=== PATIENT | female | born 1995 | race Two or more races ===

== ENCOUNTER 2024-05-22 16:39 | Emergency (ER) | payer MEDICAID, SELFPAY ==
[2024-05-22 17:47] VITALS: BP 115/68; PULSE 70; RESP 16; TEMP 36.9; O2SAT 99; BMI 26.1
--- NOTE | 2024-05-22 18:08 | PD.EDRME ---
Rapid Medical Screening Exam RME Arrival date/time: 05/22/24 16:39 This is a 28-year-old female with complaints of vaginal pain, lower pelvic pain positive . I have greeted and performed a focused initial assessment of this patient. Initial appropriate labs ordered at this time. A comprehensive ED assessment and evaluation of the patient and analysis of all test and completion of medical decision making process will be conducted by additional ED provider. Chief Complaint: Vaginal Bleeding Time Seen by Provider: 05/22/24 17:40 Vital signs: Vital Signs Temperature 98.4 F 05/22/24 17:47 Pulse Rate 70 05/22/24 17:47 Respiratory Rate 16 05/22/24 17:47 Blood Pressure 115/68 05/22/24 17:47 Pulse Oximetry (%) 99 05/22/24 17:47 Oxygen Delivery Method Room Air 05/22/24 17:47
[2024-05-22 18:28] LABS: Collection Type, Urine Clean Catch
[2024-05-22 18:32] LABS: Basophils % (Auto) 0 % (0-2.5); Eosinophils # (Auto) 0.1 Thou/mm3 (0.0-0.5); Eosinophils % (Auto) 1 % (0-10); Hemoglobin 10.6 g/dL (12.0-16.0); Immature Granulocytes % (Auto) 0 % (0-0); Immature Granulocytes Auto 0.02 Thou/mm3 (0.00-0.00); Lymphocytes # (Auto) 2.5 Thou/mm3 (1.0-4.8); Lymphocytes % (Auto) 27 % (10-50); Mean Corpuscular HGB Conc 35.3 g/dl (31.0-37.0); Mean Corpuscular Hemoglobin 30.4 pg (25.0-35.0); Mean Corpuscular Volume 86 fL (80-100); Monocytes # (Auto) 0.9 Thou/mm3 (0.0-0.8); Monocytes % (Auto) 9 % (0-12); Neutrophils # (Auto) 5.7 Thou/mm3 (1.8-7.7); Neutrophils % (Auto) 62 % (37-80); Nucleated Red Blood Cell % 0 /100 WBC (0); Platelet Count 193 Thou/mm3 (140-440); RDW Standard Deviation 38.8 fL (36.4-46.3); Red Blood Count 3.49 Miln/mm3 (4.00-5.20); White Blood Count 9.1 Thou/mm3 (3.6-11.0)
[2024-05-22 18:43] LABS: Bacteria,Urine 1+; Bilirubin,Urine Negative (Negative); Blood,Urine Negative (Negative); Clarity,Urine Turbid (Clear/Hazy); Color,Urine Yellow (Lt Yel-Yel); Glucose, Urine Negative (Negative); Ketones,Urine Negative (Negative); Leukocyte Esterase,Urine Negative (Negative); Nitrite,Urine Negative (Negative); PH,Urine 6.5 (5.0-7.0); Protein,Urine 1+ (Neg - Trace); RBC,Urine 4 /hpf (0-3); Specific Gravity,Urine 1.035 (1.001-1.035); Squamous Epithelial Cell,Urine 5 /hpf (0-5); WBC,Urine 2 /hpf (0-5)
[2024-05-22 19:06] LABS: Alanine Aminotransferase 18 U/L (10-49); Albumin, Serum 4.4 gm/dL (3.5-5.0); Albumin/Globulin Ratio 1.5 (1.2-2.2); Alkaline Phosphatase 60 U/L (46-116); Anion Gap 7 (7-16); Aspartate Amino Transferase 11 U/L (0-34); BUN/Creatinine Ratio 10 Ratio (12-20); Bilirubin,Total 0.4 mg/dL (0.3-1.2); Blood Urea Nitrogen 6 mg/dL (9-23); Calcium 9.1 mg/dL (8.3-10.6); Calcium (Corrected) 9.1 mg/dL (8.5-10.1); Chloride 105 mMol/L (98-107); Creatinine (Component) 0.6 mg/dL (0.6-1.3); Estimated Creatinine Clearance 103.1 mL/min (>60); Globulin 2.9 gm/dL (2.3-3.5); Glucose 81 mg/dL (74-106); Osmolality,Calculated 270 (275-295); Potassium 3.6 mMol/L (3.4-5.1); Sodium 137 mMol/L (136-145); Total Protein 7.3 gm/dL (5.7-8.2); eGFR > 60 See Note
[2024-05-22 19:29] LABS: Beta HCG,Quantitative 124709 mIU/mL (<5.0)
--- NOTE | 2024-05-22 19:36 | XR_ITS ---
Examination: Complete OB ultrasound, less than 14 weeks, transabdominal Date and time of exam: May hrs. Indications: Pelvic cramping and vaginal bleeding today Technique: Obstetrical ultrasound images less than 14 weeks performed via transabdominal imaging Findings: A normal shaped single intrauterine gestation is present in the uterus. CRL 1.5 cm corresponds to 7 week 6 day gestational age Cardiac motion 166 BPM Ultrasonographic survey of visible and placental structures unremarkable. Amniotic fluid volume appears appropriate for this estimated gestational age. Right ovary 5.1 cm arterial flow 3.1 x 3.1 cm cyst Left ovary 2.7 cm arterial flow. Impression: Viable intrauterine gestation 7 weeks 6 days
--- NOTE | 2024-05-22 20:37 | EDNOTE_ITS ---
ED OB Contraction Preg RMI/HPI General Chief complaint: Vaginal Bleeding Stated complaint: VAG BLEEDING, LOWER ABD PAIN Time Seen by Provider: 05/22/24 17:40 Arrival date/time: 05/22/24 16:39 RME / HPI RME / HPI Narrative: 05/22/24 16:39 This is a 28-year-old female with complaints of lower pelvic pain positive . I have greeted and performed a focused initial assessment of this patient. Initial appropriate labs ordered at this time. A comprehensive ED assessment and evaluation of the patient and analysis of all test and completion of medical decision making process will be conducted by additional ED provider. This section includes all my notes and documentations, including HPI, PE, and ED course. Ramiro Lin MD HPI: 28-year-old female here with vaginal spotting and pelvic pain since yesterday. Positive home . No other complaints. ROS: All negative except as documented in HPI. Physical Exam: General: Alert and oriented. No acute distress when remaining still. Eyes: Conjunctivae and lids clear. ENT: No nasal congestion. Neck: Supple. Heart: RRR. Lungs: No respiratory distress. Good air movement. No rhonchi, wheezing, rales. Abdomen: Soft and nontender. Normal bowel sounds. No distension. No rebound or guarding. Back: No CVA tenderness. Skin: Warm and dry. Neuro: Alert and oriented X 3. I reviewed all diagnostic test results. My review of the OB ultrasound report is GA 7 6/7-week IUP. Blood tests and urine tests unremarkable except elevated beta-hCG. At this point, diagnoses include threatened . Recommended expectant management. Based on my best medical judgment, made decision no further evaluation or treatment indicated at this time. Patient understands and agrees to the discharge instructions customized and printed, see below. Discharge Instructions from Dr. Lin: 1.? ? ? After evaluation, your baby is alive and doing well. 2.? ? ? Today, your GA is 7 6/7 weeks.? 3.? ? ? Only time will determine whether you will have a successful or you will have a miscarriage.? If your symptoms stop, you can have a successful .? If your symptoms worsen, you may have a miscarriage.? If you have a miscarriage, unfortunately we won?t be able to save the baby because it?s too early.? Under 20 weeks, unfortunately we can?t help.?? 4.? ? ? See a private doctor on 05/23/2024 to start your care.? No sexual activity until cleared by a doctor taking care of you.?? 5.? ? ? Seek immediate medical care for severe bleeding (soaking more than 3 pads per hour), intolerable pain, or with any concerns.? Instrucciones de syed de jag Lin: 1. Despu?s de la evaluaci?n, ambrocio beb? est? vivo y se encuentra taylor. 2. Hoy, ambrocio edad gestacional (EG) es de 7 6/7 semanas. 3. Solo el tiempo determinar? si tendr? un embarazo exitoso o sufrir? un aborto espont?mendy. Si nathalie s?ntomas desaparecen, puede tener un embarazo exitoso. Si nathalie s?ntomas empeoran, podr?a sufrir un aborto espont?mendy. Si sufre un aborto espont?mendy, lamentablemente no podremos salvar al beb? porque es demasiado pronto. Si tiene menos de 20 semanas, lamentablemente no podemos ayudarla. 4. Consulte con un m?dico privado el 23/05/2024 para comenzar ambrocio atenci?n . No tenga relaciones sexuales hasta que el m?dico que la atienda lo autorice. 5. Busque atenci?n m?dica inmediata en jeannie de sangrado intenso (que empape m?s de 3 toallas sanitarias por hora), dolor intolerable o cualquier inquietud. Ramiro Lin MD Related Data Allergies Allergy/AdvReac Type Severity Reaction Status Date / Time No Known Allergies Allergy Verified 05/22/24 16:42 Course Quality Measures none Orders Category Date Time Status US OB <= 14 weeks fetus Stat Exams 05/22/24 19:36 Completed ABO/RH Type Stat Lab 05/22/24 18:17 Completed Beta HCG,Quantitative Stat Lab 05/22/24 18:17 Completed CBC Stat Lab 05/22/24 18:17 Completed Comprehensive Metabolic Panel Stat Lab 05/22/24 18:17 Completed Urinalysis Stat Lab 05/22/24 18:20 Completed Urine Culture Stat Lab 05/22/24 18:20 Received Vital Signs Vital signs: Vital Signs Temperature 98.4 F 05/22/24 17:47 Pulse Rate 70 05/22/24 17:47 Respiratory Rate 16 05/22/24 17:47 Blood Pressure 115/68 05/22/24 17:47 Pulse Oximetry (%) 99 05/22/24 17:47 Oxygen Delivery Method Room Air 05/22/24 17:47 Vaginal Bleeding Patient data External records reviewed:: [facility] previous records Clinical information provided by:: patient Social determinants that could affect healthcare access:: none Patient has the following chronic illnesses:: None How is presenting disease/condition affected by chronic disease/condition?: no chronic disease Evaluation data The following diagnostics were reviewed and interpreted by me:: lab results and radiology exam(s) Lab and/or radiology exams considered but not ordered:: None Interpretation Summary: Threatened Medications / Prescriptions Medications or Prescriptions considered but not ordered:: None Medication administrations:: None Consultations Consultation(s) initiated? (list below): No Diagnosis Vaginal Bleeding Differential Diagnosis: missed , threatened , dysfunctional uterine bleeding, menometrorrhagia, incomplete , ectopic without intrauterine and vaginal bleeding Most likely diagnosis given after review of the tests above:: Threatened Admission Indicated Admission indicated?: not indicated Explain why admission is indicated or not indicated:: There is no indication for admission. Admission Request Was there a request for admission?: No Disposition Plan Disposition Plan: Discharge Discharge Attestation Discharge Attestation: The patient and all family members were given an opportunity to ask questions and understood the discharge instructions. Discharge instructions specifically effects, indications for sooner follow up or return to the emergency department, and the expected course of current diagnosis. Patient condition: Stable Discharge Plan Plan Patient Disposition: HOME (Self Care) Prescriptions/Referrals Referrals: No Primary/Family,Physician [Primary Care Provider] - In 1 week Problem List Clinical Impression: Threatened Patient/Caregiver Discharge Instructions Discharge Activity: activity as tolerated Education Materials: ED Possible Miscarriage ... Additional Instructions: Discharge Instructions from Dr. Lin: 1.? ? ? After evaluation, your baby is alive and doing well. 2.? ? ? Today, your GA is 7 6/7 weeks.? 3.? ? ? Only time will determine whether you will have a successful or you will have a miscarriage.? If your symptoms stop, you can have a successful .? If your symptoms worsen, you may have a miscarriage.? If you have a miscarriage, unfortunately we won?t be able to save the baby because it?s too early.? Under 20 weeks, unfortunately we can?t help.?? 4.? ? ? See a private doctor on 05/23/2024 to start your care.? No sexual activity until cleared by a doctor taking care of you.?? 5.? ? ? Seek immediate medical care for severe bleeding (soaking more than 3 pads per hour), intolerable pain, or with any concerns.? Instrucciones de syed de jag Lin: 1. Despu?s de la evaluaci?n, ambrocio beb? est? vivo y se encuentra taylor. 2. Hoy, ambrocio edad gestacional (EG) es de 7 6/7 semanas. 3. Solo el tiempo determinar? si tendr? un embarazo exitoso o sufrir? un aborto espont?mendy. Si nathalie s?ntomas desaparecen, puede tener un embarazo exitoso. Si nathalie s?ntomas empeoran, podr?a sufrir un aborto espont?mendy. Si sufre un aborto espont?mendy, lamentablemente no podremos salvar al beb? porque es demasiado pronto. Si tiene menos de 20 semanas, lamentablemente no podemos ayudarla. 4. Consulte con un m?dico privado el 23/05/2024 para comenzar ambrocio atenci?n . No tenga relaciones sexuales hasta que el m?dico que la atienda lo autorice. 5. Busque atenci?n m?dica inmediata en jeannie de sangrado intenso (que empape m?s de 3 toallas sanitarias por hora), dolor intolerable o cualquier inquietud. Print Language: Slovenian Stand Alone Forms: [employer] Award Info., Patient Portal Info Letter
== END 2024-05-22 20:47 | disposition home or self-care (01) ==
PROVIDERS: Nurse Practitioner Primary Care; Emergency Provider Emergency Medicine
DX: O20.0 Threatened abortion (principal); Z3A.01 Less than 8 weeks gestation of pregnancy
CPT/HCPCS: 36415; 76801; 80053; 81001; 84702; 85025; 86900; 86901; 87086; 99284

== ENCOUNTER 2024-12-19 13:08 | Outpatient (AMB) | payer MEDICAID, SELFPAY ==
[2024-12-19 13:15] VITALS: BP 115/73; PULSE 77; RESP 18; TEMP 36.6; O2SAT 97; BMI 32.5
--- NOTE | 2024-12-19 13:15 | OBCLNT_ITS ---
Vital Signs 12/19/24 13:15 Height 1.47 m Height Method Stated Weight 70.42 kg Weight Measurement Method Standing Scale BMI 32.5 BP 115/73 Blood Pressure Source Automatic Cuff Blood Pressure Location Right Upper Arm Position Sitting Respiration 18 Pulse 77 Pulse Source Monitor Temp 97.8 F Temp Source Temporal Artery Scan Pulse Oximetry (%) 97 Oxygen Delivery Method Room Air Allergies/Home Meds Allergies & Medications Allergies No Known Allergies Allergy (Verified 12/19/24 13:16) Medication Reconciliation No Known Home Medications 12/11/24 [History Confirmed 12/19/24] Intake Visit Data Collection New Patient or Established: Established Patient (seen at [facility] within 3 years) Reason for Visit:: OBC Seen by Clinical Staff ONLY (RN/MA): No Shift Nurse Manager Required: No Do You Feel Safe at Home: Yes Authorities Contacted: N/A PCP or OBGYN visit in last 3 months: Yes Date of Last PCP or OBGYN visit: 12/11/24 Hx Now: Yes Are you currently on any form of Control: No Pain Present Currently: No Pain Scale Used: Cortez-Gonzales/Numerical Pain scale:: 0 Smoking Status Smoking Status: Never smoker Immunizations Flu Vaccine in the Last 12 Months: No Flu Vaccine Exclusion Criteria: No Exclusion Criteria Questionnaires Covid-19 Vaccine Questionnaire Has patient been vacinated for Covid-19 Have you been vacinated for Covid-19: No PHQ-9 PHQ-2 Over the last 2 weeks, how often have you been bothered by any of the following problems? 1. Little interest or pleasure in doing things: not at all 2. Feeling down, depressed, or hopeless: not at all Total score: 0 PHQ-9 3. Trouble falling or staying asleep, or sleeping too much: Not at all 4. Feeling tired or having little energy: Not at all 5. Poor appetite or overeating: Not at all 6. Feeling bad about yourself - or that you are a failure or have let yourself or your family down: Not at all 7. Trouble concentrating on things, such as reading the newspaper or watching television: Not at all 8. Moving or speaking so slowly that other people could have noticed? - Or the opposite - being so fidgety or restless that you have been moving around a lot more than usual: not at all 9. Thoughts that you would be better off or of hurting yourself in some way: Not at all Total score: 0 If you checked off any problems, how difficult have these problems made it for you to do your work, take care of things at home, or get along with other people?: not difficult at all Source: Developed by Drs. Raleigh Winter, Cindy Singh, Mark Danielson and colleagues, with an educational rambo from [employer]. Depression screen completed yes Social History Living Situation History Marital Status: Lives With: Significant Other Housing: House Tobacco History Smoking Status: Never smoker Second Hand Smoke Exposure: No Alcohol History Alcohol Intake: Never Domestic Abuse History Do You Feel Safe at Home: Yes Care OB Visit Log OB Flowsheet Initial Weight: Not Recorded Date -?-?-?-?-?-?-?-?-?-?-?-?- EGA Weight BP Alb Glu CTX Pres Fundal ht FHR Mov Dilation Station Effacement Hx Notes Visit Note 12/11/24 -?-?-?-?-?-?-?-?-?-?-?-?- 37w 2d 68.946 kg 116/69 cephalic 37 144 active 12/19/24 -?-?-?-?-?-?-?-?-?-?-?-?- 38w 3d 70.42 kg 115/73 absent cephalic 38 145 active - Linda Acuña is a female at 38 weeks and 3 days gestation presenting for visit with history of previous . - She has a scheduled planned for the 24th of next week. - Patient reports baby is active with no contractions initially stated. - During the visit, patient began experi encing frequent uterine contractions. - Contractions occurring every 2 minut es - Patient's abdomen noted to be quite hard during examination - Patient reported feeling contraction s even during the visit - Patient has a vertical uterine incision from previous . - Patient to go to 4th floor of [facility] for monitoring to assess contractions - Provider will call hospital to arrange monitoring and notify staff - rescheduled to 12/25, found 7w6d sono in chart from 05/22, LEO c/w LMP - Use existing vertical incision for rep eat to avoid additional scarring - Order obstetric panel and urine test LEO Calculator Estimated Delivery Date Method Current WG Current Estimate 12/30/24 LMP (Certain) 38w 3d Other Estimates 01/02/25 Ultrasound #1 38w 0d Notes Visit Date: 12/11/24 Last Updated by: Wendy Alcaraz MD at 37 .2 weeks / previous c section in [place] RPR NR, HIV NR / O POSITIVE/ HbSAg NEG, GC AND CT NEGATIVE GBS negative 11/18/2024/ EDC good by LMP and third trimester US / Plan repeat c section on 12/25/2024 at 12.30 with me / follow up in 1 week HbaAic is 5.1 NIPt negative Office Procedures OBC Clinic LOC & Office Proc's Nursing/Assessment Patient Status: Established Patient OB Clinic Nursing Assessment: Medication Reconciliation, Update PMH in EMR and Vital Signs OB Clinic Coordination of Care: Complex Care and Chronic Disease 1-5, Education Complex Pt/Fam, Consent,records obtained, informed consent, Lab and Imaging orders, Results/Orders obtained and Staff clarify orders Special Needs: Heart tones Established Patient Charge Established Patient Point Assignment: 140 Established Patient Point Charge: EP Level 4 (120-155) Assessment & Plan Diagnosis / Problem List (1) Previous section: Status: Acute Plan Problem List - at 38 weeks 3 days gestation - History of section - Uterine contractions Assessment 37-year-old at 38 weeks 3 days gestation with history of previous section presenting with possible uterine contractions. Patient reports contractions occurring every 2 minutes with firm uterine tone noted on examination. Scheduled section planned for December 29, which is considered too close to due date given current gestational age. Plan - Patient to go to 4th floor of [facility] for monitoring to assess contractions - Provider will call hospital to arrange monitoring and notify staff - rescheduled to 12/25, found 7w6d sono in chart from 05/22, LEO c/w LMP - Use existing vertical incision for repeat to avoid additional sca rring - Order obstetric panel and urine test 1. Progress Reviewed gestational age at 38 weeks 3 days, growth, and heart rate. Patient reports baby is active. Planned frequent visits (every 2 weeks until 36 weeks, then weekly). 2. Instructed patient to monitor movements and report decreases immediately. 3. Testing Counseled on routine third-trimester labs per guidelines including CBC and obstetric panel. Discussed potential need for ultrasound or monitoring based on risk factors. 4. Preeclampsia Precaution Educated on preeclampsia signs: severe headache, vision changes, right upper quadrant pain, sudden swelling. Advised urgent reporting of symptoms and discussed blood pressure monitoring if high risk. 5. Labor Precautions Reviewed labor signs: regular contractions, pelvic pressure, back pain, bleeding, or fluid leakage. Patient reporting contractions every 2 minutes with hard abdomen - directed to hospital for monitoring. Instructed to seek immediate care for these symptoms. 6. Lifestyle and Delivery Preparation Reinforced vitamins, nutrition, and safe activity. Discussed plan including scheduled on December 29 (to be moved earlier due to proximity to due date), pain management, and surgical approach using existing scar. Advised on labor preparation (e.g., hospital bag) and expectations. 7. Psychosocial Support Assessed emotional well-being and offered resources for mental health or parenting support.
== END 2024-12-19 13:32 | disposition home or self-care (01) ==
LOC: HODSOBC 13:08
PROVIDERS: Supervising Provider Obstetrics & Gynecology; Visit Provider Obstetrics & Gynecology
DX: O09.293 Supervision of pregnancy with other poor reproductive or obstetric history, third trimester (principal); O34.212 Maternal care for vertical scar from previous cesarean delivery; Z3A.38 38 weeks gestation of pregnancy
CPT/HCPCS: 99214; G0463

== ENCOUNTER 2024-12-19 13:40 | Observation (INO) | payer MEDICAID, SELFPAY ==
[2024-12-19] VITALS (7 sets, daily range): BP systolic 124; BP diastolic 79; PULSE 68–78; RESP 18–98; TEMP 36.8; O2SAT 97–98; BMI 32.5
== END 2024-12-19 14:30 | disposition home or self-care (01) ==
PROVIDERS: Admitting Provider Obstetrics & Gynecology; Visit Provider Obstetrics & Gynecology
DX: O47.1 False labor at or after 37 completed weeks of gestation (principal); Z3A.38 38 weeks gestation of pregnancy
CPT/HCPCS: 59025; 59899

== ENCOUNTER 2024-12-24 02:58 | Inpatient (IN) | payer MEDICAID, SELFPAY ==
[2024-12-24] VITALS (22 sets, daily range): BP systolic 106–135; BP diastolic 63–98; PULSE 76–101; RESP 16–98; TEMP 36.6–37; O2SAT 92–99; BMI 32.1
[2024-12-24] MEDS: ceFAZolin/D5W 2 GM IV 2 GM/100 ML BAG IV (03:39)
[2024-12-24] MEDS: FAMOTIDINE INJ 10 MG/ML VIAL 2 ML 20 MG IV (03:39)
[2024-12-24] MEDS: RINGERS LACTATED 1000 ML 1,000 ML 100 ML IV (03:39)
[2024-12-24] MEDS: METOCLOPRAMIDE INJ 5 MG/ML VIAL 2 ML 10 MG IVP (03:39)
--- NOTE | 2024-12-24 03:41 | PD.LDHP ---
Documentation for date of: 12/24/24 OB Labor/Induct. HPI History of Present Illness Chief complaint: Contractions : 2 Para: 1 Term pregnancies: 1 pregnancies: 0 Living children: 1 History of Abortions: Spontaneous and Elective: 0 History of sections: Yes (CSX1) History of : No Date of last menstrual period: 03/25/24 LEO: 12/30/24 Gestational age based on last menstrual period: 39 History of present illness: Patient is a 28-year-old 2 para 1-0-0-1 with a history of a previous vertical skin incision and unknown scar from [place] who is 39 weeks and 1 day and is presenting with contractions. Patient denies any leakage of fluid and vaginal bleeding. She reports good movements. On exam she was noted to be 6 cm dilated with complete effacement of cervix. Past Medical History Surgical History SURGICAL: Positive Section (CSX1) Meds Home Medications and Allergies Home Medications ?Medication ?Instructions ?Recorded ?Confirmed ?Type vlcyobt-cxqb-CM 40 mg-1 1 tab PO QDAY 12/19/24 12/19/24 History mg chewable tablet Allergies Allergy/AdvReac Type Severity Reaction Status Date / Time No Known Allergies Allergy Verified 12/24/24 03:18 OB Exam Physical Exam Vital signs: Pulse BP Pulse Ox 87 122/73 97 12/24/24 03:09 12/24/24 03:09 12/24/24 03:39 Constitutional Constitutional: no acute distress Routine HEENT Exam Head: Present normocephalic and atraumatic Eye: Present EOMI and PERRL ENT: Present mucous membranes moist Routine Neck Exam Neck: Present supple and trachea midline Routine Cardiovascular Exam Cardiovascular: Present RRR Routine Abdominal Exam Abdominal: Present soft and normoactive bowel sounds Detailed Labor and Delivery Exam Dilation (cm): 6 Effacement (%): 100 Cervix position: mid station: 0 Presentation: Vertex Baseline heart rate: 145 monitor accelerations: 15x15 monitor decelerations: None correction variability: Average (6-10) Routine Extremities Exam Extremities: Present full ROM Routine Skin Exam Skin: Present intact, dry and warm Routine Neurological Exam Neurological: Present alert, oriented X3 and CN II-XII intact Routine Psychiatric Exam Psychiatric: Present normal affect and normal thought process OB Results Labs 12/24/24 03:22 OB Assessment & Plan Assessment and Plan (1) Previous section: Status: Acute Assessment and plan: Admit to inpatient status for repeat low transverse IV access, CBC, type and screen, LR at 125, RPR, COVID-19 test GBS negative Ancef 2 g prior to surgery start Cortes catheter to drainage SCDs for DVT prophylaxis Anesthesia to preop for spinal anesthesia Scheduled for surgery. (2) Active labor: Status: Acute
[2024-12-24 03:47] LABS: Basophils # (Auto) 0.0 Thou/mm3 (0.0-0.2); Basophils % (Auto) 0 % (0-2.5); Eosinophils # (Auto) 0.0 Thou/mm3 (0.0-0.5); Eosinophils % (Auto) 0 % (0-10); Hematocrit 35.2 % (36.0-46.0); Hemoglobin 12.0 g/dL (12.0-16.0); Immature Granulocytes Auto 0.06 Thou/mm3 (0.00-0.00); Lymphocytes # (Auto) 2.1 Thou/mm3 (1.0-4.8); Lymphocytes % (Auto) 21 % (10-50); Mean Corpuscular HGB Conc 34.1 g/dl (31.0-37.0); Mean Corpuscular Hemoglobin 29.8 pg (25.0-35.0); Mean Corpuscular Volume 87 fL (80-100); Monocytes # (Auto) 0.6 Thou/mm3 (0.0-0.8); Monocytes % (Auto) 6 % (0-12); Neutrophils # (Auto) 7.4 Thou/mm3 (1.8-7.7); Neutrophils % (Auto) 72 % (37-80); Nucleated Red Blood Cell # 0.00 Thou/mm3 (0.00-0.00); Nucleated Red Blood Cell % 0 /100 WBC (0); Platelet Count 170 Thou/mm3 (140-440); RDW Standard Deviation 44.3 fL (36.4-46.3); Red Blood Count 4.03 Miln/mm3 (4.00-5.20); White Blood Count 10.2 Thou/mm3 (3.6-11.0)
[2024-12-24 04:19] LABS: Syphilis Nonreactive (Nonreactive)
--- NOTE | 2024-12-24 04:34 | PD.GYNPROC ---
Operative Note - SENIOR CASE MANAGER Procedure Date of procedure: 12/24/24 Procedure Performed: Repeat low-transverse section with vertical skin incision Indication: 28-year-old G2, P1 with previous in [place] with unknown scar in labor at 39 weeks and 1 day Anesthesia type: Spinal Procedure description: Informed consent was obtained. The patient was brought to the operating room and identified with two patient identifiers. She was placed in the supine position, and spinal anesthesia was administered. After confirming adequate anesthesia, the abdomen and perineum were prepped and draped in the usual sterile fashion. A Cortes catheter was inserted for continuous bladder drainage. A vertical midline skin incision was made using a scalpel and carried through subcutaneous tissue to the rectus fascia. The previous skin scar was identified and excised in its entirety. The fascia was incised vertically and dissected off the rectus muscles both superiorly and inferiorly. The rectus bellies were in the midline, and the peritoneum was entered bluntly with the surgeon?s finger. The peritoneal opening was extended to allow adequate exposure. An Sharif O-ring retractor was placed for optimal visualization. Multiple bands of ideation were noted between the omentum and the uterine surface as well as the adnexa with the anterior abdominal wall. These were taken down as much as possible to protect the bladder and other vital organs as well as to gain access to the uterus for delivery of the fetus. The lower uterine segment was palpated, and the bladder flap was reflected inferiorly. A low transverse uterine incision (Chantell Mathew) was made with a scalpel and extended bluntly. The amniotic membranes were ruptured, and clear fluid was released. The fetus was in vertex presentation. The head was low in the cervical canal almost in the vagina and the head was delivered by gentle upward traction. The shoulders and body were delivered smoothly with gentle fundal pressure. The umbilical cord was doubly clamped and cut, and the infant was handed to the awaiting team. Cord gases were obtained. The placenta was delivered with gentle traction on the cord. The uterine cavity was cleared of membranes and clots. The hysterotomy angles were secured with Allis clamps. The uterine incision was closed in two layers using #1 Monocryl: the first layer was a running locked suture to approximate the myometrium, and the second layer imbricated the serosa and myometrium. Multiple additional [id number] sutures were applied at all bleeding points hemostasis was confirmed. The Sharif retractor was removed. Peritoneal edges and rectus muscles were reapproximated. Rectus fascia was closed with running 1 PDS. The subcutaneous tissue was irrigated with warm saline, and bleeding points were cauterized using Bovie electrocautery. Subcutaneous tissue was approximated with 3-0 Vicryl. The skin was closed using oswaldo. A sterile dressing was applied. The patient was cleaned, undraped, and transferred to the recovery room in stable and awake condition. She tolerated the procedure well. No complications were encountered. All counts were correct x 2 Specimen: none Estimated blood loss (ml): 650 Complications: none Diagnosis Discharge Diagnosis (1) Previous section: Status: Acute (2) Active labor: Status: Acute (3) delivery delivered: Status: Acute Problem List Completed Was Problem List Reviewed/Reconciled?: Yes
--- NOTE | 2024-12-24 04:38 | PD.LDDELS ---
Data (Mcintyre) Data Hx Section: Yes (CSX1) : 2 Term: 1 : 0 Livin Abortions: Spontaneous & Theraputic: 0 Delivery Data (Mcintyre) Labor Data Initiation of labor: Spontaneous Induction/Augmentation Agent: None ROM date: 12/24/24 ROM time: 04:05 Amniotic membrane rupture type: Spontaneous Amniotic fluid description: Clear Delivery Data Onset of labor date: 12/24/24 Onset of labor time: 00:00 delivery date: 12/24/24 [place] delivery time: 04:05 Placenta delivery date: 12/24/24 Placenta delivery time: 04:06 Delivered by: dr zepeda Delivery nurse: kalyn Eason nurse: xander Air Brake Rigger at delivery: No Support person(s) at delivery: not present at this time Other staff at delivery: brandy cerda rt [facility] Delivery Method Delivery method: Low Transverse Presentation: Vertex Anesthesia Type Anesthesia Type: None Anesthesia type: Spinal Placenta Placenta delivery description: Manual Removal Cord blood sent to lab: Yes cord blood collection: Cord Blood Type Episiotomy Episiotomy description: None Umbilical Cord cord description: 3 Vessels [place] Data (Mcintyre) [place] Data [place]'s gender: Male Identification band number: [id number] weight (gms): 2880 g Weight (pounds): 6 lbs and 5.6 ozs length: 48.26 cm 1 minute: 8 5 minutes: 9
[2024-12-24] MEDS: ONDANSETRON INJ 2 MG/ML INJ 2 ML 4 MG IV (06:37)
[2024-12-24] MEDS: DOCUSATE SOD 100 MG CAPSULE PO (08:11)
[2024-12-24] MEDS: HYDROcodone/APAP 5/325 TABLET 1 TAB PO (08:49)
[2024-12-24] MEDS: KETOROLAC INJ 30 MG/ML VIAL IVP (12:11)
[2024-12-24] MEDS: OXYTOCIN in NS 20 units 20 UNIT/1,000 ML BAG 125 UNIT IV (12:12)
[2024-12-24] MEDS: IBUPROFEN TAB 400 MG TABLET 800 MG PO (20:22)
[2024-12-25 00:15] VITALS: BP 96/55; PULSE 87; RESP 16; TEMP 36.4; O2SAT 98
[2024-12-25 03:28] VITALS: BP 114/75; PULSE 98; RESP 19; TEMP 36.8; O2SAT 96
[2024-12-25 05:48] LABS: Basophils # (Auto) 0.0 Thou/mm3 (0.0-0.2); Basophils % (Auto) 0 % (0-2.5); Eosinophils # (Auto) 0.0 Thou/mm3 (0.0-0.5); Eosinophils % (Auto) 0 % (0-10); Hematocrit 25.4 % (36.0-46.0); Immature Granulocytes Auto 0.05 Thou/mm3 (0.00-0.00); Lymphocytes # (Auto) 1.6 Thou/mm3 (1.0-4.8); Lymphocytes % (Auto) 14 % (10-50); Mean Corpuscular HGB Conc 33.5 g/dl (31.0-37.0); Mean Corpuscular Hemoglobin 29.8 pg (25.0-35.0); Mean Corpuscular Volume 89 fL (80-100); Monocytes # (Auto) 0.7 Thou/mm3 (0.0-0.8); Monocytes % (Auto) 6 % (0-12); Neutrophils # (Auto) 9.1 Thou/mm3 (1.8-7.7); Neutrophils % (Auto) 79 % (37-80); Nucleated Red Blood Cell # 0.00 Thou/mm3 (0.00-0.00); Nucleated Red Blood Cell % 0 /100 WBC (0); Platelet Count 143 Thou/mm3 (140-440); RDW Standard Deviation 46.5 fL (36.4-46.3); Red Blood Count 2.85 Miln/mm3 (4.00-5.20); White Blood Count 11.6 Thou/mm3 (3.6-11.0)
[2024-12-25 06:31] LABS: Hemoglobin 8.5 g/dL (12.0-16.0)
[2024-12-25 07:48] VITALS: BP 112/71; PULSE 96; RESP 20; TEMP 36.7; O2SAT 97
[2024-12-25] MEDS: DOCUSATE SOD 100 MG CAPSULE PO ×2 (08:17→22:02)
[2024-12-25] MEDS: HYDROcodone/APAP 5/325 TABLET 1 TAB PO ×2 (08:17→14:02)
--- NOTE | 2024-12-25 14:30 | ESPR_ITS ---
Subjective Subjective Interval history: Patient has no/ complaints Headache no Blurry vision no Chest pain no Palpitations no Shortness of breath no Nausea or vomiting or constipation no Back pain no Dysuria no Dizziness no calf pain no She is voiding spontaneously after catheter removal yes Passing flatus yes Lochia minimal yes Exam Vital Signs Temp Pulse Resp BP Pulse Ox O2 Del Method 98.1 F 96 20 112/71 97 Room Air 12/25/24 07:48 12/25/24 07:48 12/25/24 07:48 12/25/24 07:48 12/25/24 07:48 12/25/24 07:48 Narrative Exam alert x3 chest clear CVS RRR NO thyromegaly Uterus is nontender Uterus is firm/ appropriate size Just below the umbilicus Bowel sounds present Abdomen soft no hernias noted/no CVAT Incision CDI/ Low midline vertical and has oswaldo No drainage Appropriately tender No calf tenderness Edema mild Objective Labs 12/25/24 05:00 Labs: Laboratory Results - last 24 hr 12/25/24 05:00 WBC 11.6 H RBC 2.85 L Hgb 8.5 L D Hct 25.4 L MCV 89 MCH 29.8 MCHC 33.5 RDW Std Deviation 46.5 H Plt Count 143 Neut % (Auto) 79 Lymph % (Auto) 14 [place] % (Auto) 6 Eos % (Auto) 0 Baso % (Auto) 0 Neut # (Auto) 9.1 H Lymph # (Auto) 1.6 [place] # (Auto) 0.7 Eos # (Auto) 0.0 Baso # (Auto) 0.0 Immature Gran # (Auto) 0.05 H Absolute Nucleated RBC 0.00 Immature Gran % 0 Nucleated RBC % 0 Impressions Impression: POD #1 after a repeat LTCS on 12/24/2024 Procedure Date of procedure: 12/24/24 Procedure Performed: Repeat low-transverse section with vertical skin incision Indication: 28-year-old G2, P1 with previous in [place] with unknown scar in labor at 39 weeks and 1 day Anesthesia type: Spinal doing well Assessment & Plan Problem List (1) Previous section: Status: Acute (2) Active labor: Status: Acute (3) delivery delivered: Status: Acute Assessment and plan: 28 years old at 39.2 weeks came in labor and she had a emergency repeat LTCS / there were a lot of adhesions intraoperatively . POD #1 doing well , voiding on her own and ambulating / Hb is 8.5 and will start on oral iron / Passing flatus and can go home tomorrow on oral iron and follow up in 1 week to remove oswaldo Time Spent With Patient Time: Total time spent is greater than 50% in coordination of care (as documented) at patient's floor/unit and/or counseling patient: Time with patient: 25 - 35 minutes
[2024-12-25 15:00] VITALS: BP 111/75; PULSE 98; RESP 20; TEMP 37.1; O2SAT 98
[2024-12-25] MEDS: Milk Of Magnesia Susp 30 ML UDC PO (15:10)
[2024-12-25] MEDS: FERROUS SULF 325 MG TABLET PO (15:10)
[2024-12-25] MEDS: SIMETHICONE 80 MG CHEW PO ×2 (15:10→22:01)
[2024-12-25 19:25] VITALS: BP 102/61; PULSE 69; RESP 18; TEMP 37.7; O2SAT 98
[2024-12-25] MEDS: HYDROcodone/APAP 5/325 TABLET 2 TAB PO (22:01)
[2024-12-26 04:45] VITALS: BP 116/78; PULSE 89; RESP 18; TEMP 36.6; O2SAT 98
[2024-12-26] MEDS: IBUPROFEN TAB 400 MG TABLET 800 MG PO (05:09)
[2024-12-26 05:37] LABS: Basophils # (Auto) 0.0 Thou/mm3 (0.0-0.2); Basophils % (Auto) 0 % (0-2.5); Eosinophils # (Auto) 0.1 Thou/mm3 (0.0-0.5); Eosinophils % (Auto) 1 % (0-10); Hematocrit 25.7 % (36.0-46.0); Immature Granulocytes Auto 0.09 Thou/mm3 (0.00-0.00); Lymphocytes # (Auto) 2.0 Thou/mm3 (1.0-4.8); Lymphocytes % (Auto) 22 % (10-50); Mean Corpuscular HGB Conc 33.5 g/dl (31.0-37.0); Mean Corpuscular Hemoglobin 30.4 pg (25.0-35.0); Mean Corpuscular Volume 91 fL (80-100); Monocytes # (Auto) 0.6 Thou/mm3 (0.0-0.8); Monocytes % (Auto) 7 % (0-12); Neutrophils # (Auto) 6.6 Thou/mm3 (1.8-7.7); Neutrophils % (Auto) 70 % (37-80); Nucleated Red Blood Cell # 0.00 Thou/mm3 (0.00-0.00); Nucleated Red Blood Cell % 0 /100 WBC (0); Platelet Count 165 Thou/mm3 (140-440); RDW Standard Deviation 47.8 fL (36.4-46.3); Red Blood Count 2.83 Miln/mm3 (4.00-5.20); White Blood Count 9.5 Thou/mm3 (3.6-11.0)
[2024-12-26 05:55] LABS: Hemoglobin 8.6 g/dL (12.0-16.0)
[2024-12-26 07:25] VITALS: BP 115/69; PULSE 88; RESP 16; TEMP 36.3; O2SAT 98
--- NOTE | 2024-12-26 12:59 | ESPR_ITS ---
Subjective Subjective Interval history: The patient is a 28-year-old -0-0-2 postop day 2 status post repeat low- transverse section in labor. Today the patient is resting comfortably dressed and ready to go home. She is voiding. She is tolerating a general diet. She reports her bleeding is minimal. Her pain is controlled with p.o. pain medications. She is breast and bottlefeeding. The father the baby is at bedside. Exam Vital Signs Temp Pulse Resp BP Pulse Ox O2 Del Method 97.4 F 88 16 115/69 98 Room Air 12/26/24 07:25 12/26/24 07:25 12/26/24 07:25 12/26/24 07:25 12/26/24 07:25 12/26/24 07:25 Narrative Exam The patient is alert and orient x 3 in no apparent distress. She is Monegasque- speaking only and the entire interview and physical exam is conducted with Mary employee relations assistant at bedside. Fundus is firm at umbilicus Vertical skin incision clean dry and intact and closed with oswaldo. Extremities show 2+ pitting edema of ankles. No erythema. Objective Labs 12/26/24 04:50 Labs: Laboratory Results - last 24 hr 12/26/24 04:50 WBC 9.5 RBC 2.83 L Hgb 8.6 L Hct 25.7 L MCV 91 MCH 30.4 MCHC 33.5 RDW Std Deviation 47.8 H Plt Count 165 Neut % (Auto) 70 Lymph % (Auto) 22 [place] % (Auto) 7 Eos % (Auto) 1 Baso % (Auto) 0 Neut # (Auto) 6.6 Lymph # (Auto) 2.0 [place] # (Auto) 0.6 Eos # (Auto) 0.1 Baso # (Auto) 0.0 Immature Gran # (Auto) 0.09 H Absolute Nucleated RBC 0.00 Immature Gran % 1 H Nucleated RBC % 0 Assessment & Plan Problem List (1) Previous section: Status: Acute (2) Active labor: Status: Acute (3) delivery delivered: Problem details: Patient will be discharged home postoperative day #2 in stable condition. Discharge instructions given. Follow-up in the clinic in 1 week for staple removal Status: Acute Time Spent With Patient Time: Total time spent is greater than 50% in coordination of care (as documented) at patient's floor/unit and/or counseling patient: Time with patient: less than 15 minutes
--- NOTE | 2024-12-26 13:02 | ESDS_ITS ---
DS: Providers Provider Date of admission: 12/24/24 03:16 Primary care physician: Physician No Primary/Family Admitting Provider: Slava Rascon MD Attending Provider on Admission: Slava Rascon MD Consults: 12/24/24 06:23 Referral Routine Comment: Attending Provider on DC: Nica Vernon MD ([facility]) Discharging Provider: Nica Vernon MD ([facility]) Anticipated date of discharge: 12/26/24 DS: Diagnosis Discharge Diagnosis (1) delivery delivered: Status: Acute Assessment & Plan: Patient will be discharged home post operative day #2 in stable condition (2) Previous section: Status: Acute (3) Active labor: Status: Acute Problem List Completed Was Problem List Reviewed/Reconciled?: Yes Summary/Hosp Course Brief History: Patient is a 28-year-old 2 para 1-0-0-1 with a history of a previous vertical skin incision and unknown scar from [place] who is 39 weeks and 1 day and is presenting with contractions. Patient denies any leakage of fluid and vaginal bleeding. She reports good movements. On exam she was noted to be 6 cm dilated with complete effacement of cervix. She was admitted by Dr. Rascon. Please see history and further physical for further details. Hospital course: Patient underwent an uncomplicated repeat low-transverse section in labor by Dr. Rascon. Please see op report for further details. Her postoperative course was uncomplicated. By postoperative day #2, the patient was voiding, ambulating, tolerating a general diet. She was passing flatus and having bowel movements. Her pain was controlled with p.o. pain medication. Her bleeding was minimal. She was breast and bottlefeeding. She was discharged home postoperative day #2 in stable condition. Discharge instructions including no heavy lifting, intercourse, tampons, swimming pools or douching x 6 weeks. No heavy exercise x 6 weeks. She was to call the clinic for follow-up. She will need an appointment in 1 week for staple removal. Peripartum Data Delivery Method: Low Transverse Episiotomy Description: None Procedures: Procedures Operation Date: 12/24/24 04:05 Actual Procedure Side Surgeon p in OB Slava Rascon MD complications: none Status at Discharge Cognitive/behavioral status at discharge: Patient is alert and orient x 3 in no apparent distress Functional status at discharge: independent ambulation Overall status at discharge: patient is progressing back to baseline Time Spent with Patient Time attestation: Total time spent providing and/or coordinating discharge services: Time spent: Less than 30 minutes Specific discharge activities: No heavy lifting, intercourse, douching, bathtubs or heavy exercise x 6 weeks Exam Vital Signs Temp Pulse Resp BP Pulse Ox O2 Del Method 97.4 F 88 16 115/69 98 Room Air 12/26/24 07:25 12/26/24 07:25 12/26/24 07:25 12/26/24 07:25 12/26/24 07:25 12/26/24 07:25 Narrative Exam Patient is alert and orient x 3 in no apparent distress Fundus is firm at umbilicus Vertical skin incision clean dry and intact with oswaldo in place Extremities show 2+ pitting edema of ankles. No erythema no pain Discharge Plan Plan Patient Disposition: HOME (Self Care) Disposition Comment: Stable Patient condition on transfer: Stable Prescriptions/Referrals Prescriptions/Med Rec: New acetaminophen 325 mg Tablet 650 mg PO Q6HR PRN (Reason: Patient rated pain of 3) Qty: 60 0RF hydrocodone-acetaminophen 5-325 mg Tablet 2 tab PO Q6HR MDD 4 PRN (Reason: Patient rated pain 9 to 10) Qty: 20 0RF ibuprofen 400 mg Tablet 800 mg PO Q8HR PRN (Reason: Pain Scale 4-6 (Moderate) Qty: 60 0RF docusate sodium 100 mg Capsule 100 mg PO QDAY Qty: 60 0RF ferrous sulfate 325 mg (65 mg iron) Tablet,Delayed Release (Dr/Ec) 30 mg PO QOD Qty: 30 0RF Discontinued [id number]-[id number] 40-1 mg tablet,chewable 1 tab PO QDAY Referrals: Janeen ([facility])Nica MD [Physician, FARM MACHINERY ENGINE MECHANIC] No Primary/Family,Physician [Primary Care Provider] Patient/Caregiver Discharge Instructions Discharge Activity: activity as tolerated Other Discharge Activity Instructions:: No heavy lifting intercourse tampons douching bathtubs swimming x 6 weeks. No heavy exercise x 6 weeks. Call the clinic for follow-up in 1 week for staple removal. Other Discharge Diet Instructions: Call for heavy vaginal bleeding, fevers or depression. Education Materials: After a , : Caring for Yourself, C Section Dc Print Language: Azeri Activity Restrictions/Additional Instructions: PLEASE FOLLOW UP IN 1 WEEK WITH PROVIDER FOR A POST OP CHECK UP Stand Alone Forms: Swapna Award Info., Patient Portal Info Letter Discharge Order Discharge Orders: Discharge (Routine); Ordered 12/26/24 Ordered By: Nica Vernon ([facility]) Planned Discharge Date 12/26/24
== END 2024-12-26 14:50 | disposition home or self-care (01) | DRG 540 ==
LOC: S4SX 03:53 → S4NX 03:59
PROVIDERS: Obstetrics & Gynecology; Admitting Provider Obstetrics & Gynecology; Visit Provider Obstetrics & Gynecology
PROC: 10D00Z1 Extraction of Products of Conception, Low, Open Approach (ICD-10-PCS; CPT 59514; principal; 2024-12-24 03:45)
DX: O34.211 Maternal care for low transverse scar from previous cesarean delivery (principal); Z37.0 Single live birth; Z3A.39 39 weeks gestation of pregnancy
CPT/HCPCS: 36415; 85025; 86780; 86850; 86900; 86901; 90686; A4217; A4314; A4649; J0689; J1885; J2274; J2371; J2405; J2590; J2765; J3010; J3490; J7120; A9270; J2270; J9060

== ENCOUNTER 2024-12-31 08:59 | Outpatient (AMB) | payer MEDICAID, SELFPAY ==
[2024-12-31 09:31] VITALS: BP 112/77; PULSE 96; RESP 18; TEMP 37.1; O2SAT 98
--- NOTE | 2024-12-31 09:31 | AMB.OBPP ---
Vital Signs 12/31/24 09:31 Height Method Stated Weight 61.462 kg Weight Measurement Method Standing Scale BP 112/77 Blood Pressure Source Automatic Cuff Blood Pressure Location Left Upper Arm Position Sitting Respiration 18 Pulse 96 Pulse Source Monitor Temp 98.8 F Temp Source Oral Pulse Oximetry (%) 98 Oxygen Delivery Method Room Air Allergies/Home Meds Allergies & Medications Allergies No Known Allergies Allergy (Verified 12/31/24 09:31) Medication Reconciliation acetaminophen 325 mg tablet 650 mg (2 x 325 mg) PO Q6HR PRN Patient rated pain of 3 #60 tabs 12/26/24 [Rx Confirmed 12/31/24] docusate sodium 100 mg capsule 100 mg PO QDAY #60 caps 12/26/24 [Rx Confirmed 12/31/24] ferrous sulfate 325 mg (65 mg iron) tablet,delayed release 30 mg (0.0923 x 325 mg (65 mg iron)) PO QOD #30 tabs 12/26/24 [Rx Confirmed 12/31/24] hydrocodone 5 mg-acetaminophen 325 mg tablet 2 tab PO Q6HR PRN Patient rated pain 9 to 10 #20 tabs 12/26/24 [Rx Confirmed 12/31/24] ibuprofen 400 mg tablet 800 mg (2 x 400 mg) PO Q8HR PRN Pain Scale 4-6 (Moderate #60 tabs 12/26/24 [Rx Confirmed 12/31/24] Intake Visit Data Collection New Patient or Established: Established Patient (seen at [facility] within 3 years) Reason for Visit:: PP Rubber Tile Floor Layer Required: No Do You Feel Safe at Home: Yes Authorities Contacted: N/A PCP or OBGYN visit in last 3 months: Yes Date of Last PCP or OBGYN visit: 12/26/24 Hx Now: No Are you currently on any form of Control: No Pain Present Currently: No Pain Scale Used: [place]-Gonzales/Numerical Pain scale:: 0 Smoking Status Smoking Status: Never smoker Immunizations Flu Vaccine in the Last 12 Months: No Flu Vaccine Exclusion Criteria: No Exclusion Criteria 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: Past Medical History Past Medical History: No Hx Neurological Disorders, No Hx Cardiac Disorders, No Hx Cancer, No Hx Blood Disorders, No Hx Gastrointestinal Disorders, No Hx Renal Disease, No Hx Diabetes Mellitus Type 1, No Hx Diabetes Mellitus Type 2, No Hx Tubal Ligation and No Hx Hysterectomy Questionnaires Covid-19 Vaccine Questionnaire Has patient been vacinated for Covid-19 Have you been vacinated for Covid-19: Yes Social History Living Situation History Lives With: Significant Other Housing: House Tobacco History Smoking Status: Never smoker Second Hand Smoke Exposure: No Alcohol History Alcohol Intake: Never Domestic Abuse History Do You Feel Safe at Home: Yes EPDS - PP Depression Screening [place] Pospartum Depression Screen I have been able to laugh and see the funny side of things: (0) As much as I always could I have looked forward with enjoyment to things: (0) As much as I ever did I have blamed myself unnecessarily when things went wrong: (0) No, never I have been anxious or worried for no good reason: (0) No, not at all I have felt scared or panicky for no very good reason: (0) No, not at all Things have been getting on top of me: (0) No, I have been coping as well as ever I have been so unhappy that I have had difficulty sleeping: (0) No, not at all I have felt sad or miserable: (0) No, not at all I have been so unhappy that I have been crying: (0) No, never The thought of harming myself has occurred to me: (0) Never Total Score: EPDS Score: Referral is indicated for score of 9 or more, suicidal, or if provider believes patient is depressed regardless of score.: 0 EPDS completed yes Care OB Visit Log OB Flowsheet Initial Weight: Not Recorded Date <del>?</del> EGA Weight BP Alb Glu CTX Pres Fundal ht FHR Mov Dilation Station Effacement Hx Notes Visit Note 12/11/24 <del>?</del> 37w 2d 68.946 kg 116/69 cephalic 37 144 active 12/19/24 <del>?</del> 38w 3d 70.42 kg 115/73 absent cephalic 38 145 active - Linda Acuña is a female at 38 weeks and 3 days gestation presenting for visit with history of previous . - She has a scheduled planned for the 24th of next week. - Patient reports baby is active with no contractions initially stated. - During the visit, patient began experiencing frequent uterine contractions. - Contractions occurring every 2 minutes - Patient's abdomen noted to be quite hard during examination - Patient reported feeling contractions even during the visit - Patient has a vertical uterine incision from previous . - Patient to go to 4th floor of [facility] for monitoring to assess contractions - Provider will call hospital to arrange monitoring and notify staff - rescheduled to 12/25, found 7w6d sono in chart from 05/22, [facility] c/w LMP - Use existing vertical incision for repeat to avoid additional scarring - Order obstetric panel and urine test LEO Calculator Estimated Delivery Date Method Current WG Current Estimate 12/30/24 LMP (Certain) 40w 3d Other Estimates 01/02/25 Ultrasound #1 40w 0d Notes Visit Date: 12/11/24 Last Updated by: Wendy Alcaraz MD at 37 .2 weeks / previous c section in [place] RPR NR, HIV NR / O POSITIVE/ HbSAg NEG, GC AND CT NEGATIVE GBS negative 11/18/2024/ EDC good by LMP and third trimester US / Plan repeat c section on 12/25/2024 at 12.30 with me / follow up in 1 week HbaAic is 5.1 NIPt negative HPI Interval History: Linda Acuña presents for a 2-week postoperative follow-up visit status post repeat section with vertical skin incision and low transverse uterine incision for staple removal. The patient reports that everything is going okay since her surgery. During the visit, some inflammation was noted in the bottom part of her incision site, for which antibiotics will be prescribed. The patient is instructed to continue wearing her postoperative support garment for a full month from the date of her section. She has a history of at least one prior section. The patient had a recent delivery via repeat section with vertical skin incision and low transverse uterine incision. ROS: Negative except as stated above, limited to 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 and pertinent complaints. Exam Narrative Physical exam: - Abdominal: incision site examined. Mild inflammation noted at the bottom portion of the incision. Taylor removed without difficulty. Office Procedures [facility] LOC & Office Proc's Nursing/Assessment Patient Status: Established Patient [facility] Clinic Nursing Assessment: Medication Reconciliation, Update PMH in EMR and Vital Signs OB Clinic Coordination of Care: Consent,records obtained, informed consent, Education Simp Pt/Fam, Lab and Imaging orders, Results/Orders obtained and Staff clarify orders Established Patient Charge Established Patient Point Assignment: 80 Established Patient Point Charge: EP Level 3 (80-115) Assessment & Plan Diagnosis / Problem List (1) delivery delivered: Status: Acute Plan Postoperative section staple removal: - Patient is 2 weeks status post repeat section with vertical skin incision and low transverse uterine incision. - Incision appears to be healing well overall with oswaldo ready for removal. - Mild inflammation noted at the bottom portion of the incision site. Plan: - Staple removal completed. - Prescribe antibiotics for mild incisional inflammation: ? Send prescription to [facility]. - Continue wearing abdominal binder for full one month from section date. - Follow up with [facility] office for next appointment. - [facility] physician will contact if any issues arise.
== END 2024-12-31 10:05 | disposition home or self-care (01) ==
LOC: HODSOBC 08:59
PROVIDERS: Supervising Provider Obstetrics & Gynecology; Visit Provider Obstetrics & Gynecology
DX: Z39.2 Encounter for routine postpartum follow-up (principal); O86.00 Infection of obstetric surgical wound, unspecified
CPT/HCPCS: 99213; G0463